=== PATIENT | female | born 1975 | race Caucasian/White ===

== ENCOUNTER → 2022-12-07 11:51 | Outpatient (CLI) | payer BC, SELFPAY ==
--- NOTE | ~2022-12-07 | XR_ITS ---
EXAMINATION: XR chest 2V 12/07/2022 12:55 INDICATION: Chronic cough PROCEDURE: 2 view chest COMPARISON: No prior studies for comparison. FINDINGS: The lungs are clear. The cardiomediastinal silhouette is within normal limits. There are no pleural effusions. There is no pneumothorax suspected. IMPRESSION: 1: NO ACUTE CARDIOPULMONARY DISEASE. Reviewed, dictated and finalized at location A.
== END ==
PROVIDERS: PCP Family Medicine; Visit Provider Family Medicine
DX: R05.3 Chronic cough (principal)
CPT/HCPCS: 71046

== ENCOUNTER 2023-08-24 07:21 | Outpatient (CLI) | payer BC, SELFPAY ==
--- NOTE | ~2023-08-24 | MM_ITS ---
EXAMINATION: MM screening lena BI w alvino HISTORY: Screening mammogram TECHNIQUE: Craniocaudal and mediolateral oblique 3-D tomosynthesis images were obtained and synthetic 2-D images were generated. CAD analysis was submitted and interpreted. COMPARISON: 11/18/2018 bilateral screening mammogram BREAST PARENCHYMAL COMPOSITION: There are scattered areas of fibroglandular density. FINDINGS: There is no evidence of suspicious mass, calcification, or architectural distortion to sugg est malignancy in either breast. There has been no suspicious interval change. IMPRESSION: 1. No mammographic evidence of malignancy. 2. Recommend routine screening mammography in one year. BI-RADS Category 1: Negative Reviewed, dictated and finalized at location A.
== END 2023-08-24 07:22 ==
LOC: MICIMG 07:22
PROVIDERS: PCP Physician Assistant; Visit Provider Physician Assistant
DX: Z12.31 Encounter for screening mammogram for malignant neoplasm of breast (principal)
CPT/HCPCS: 77063; 77067

== ENCOUNTER 2025-03-21 10:43 | Outpatient (CLI) | payer BC, SELFPAY ==
--- NOTE | ~2025-03-21 | US_ITS ---
EXAMINATION: US transvaginal INDICATION: Postmenopausal bleeding Comparison:No prior studies for comparison. TECHNIQUE: Multiple transabdominal and endovaginal sonographic images of the pelvis performed. FINDINGS: The uterus measures 8.2 x 5.7 x 6.7 cm. There is a complex partially calcified mass of the wrist measuring 3.9 x 3.4 x 3.7 cm, consistent with a fibroid. The endometrial complex is not well delineated due to fibroid changes. The ovaries are not visualized. There is no free fluid in the pelvis. There are no abnormal masses seen on either side. IMPRESSION: 1. Complex partially calcified uterine mass measuring 3.9 cm, consistent with fibroid. Reviewed, dictated and finalized at location O. [employer] IMPRESSION: 1. Complex partially calcified uterine mass measuring 3.9 cm, consistent with f ibroid.
== END 2025-03-21 10:44 | disposition home or self-care (01) ==
PROVIDERS: PCP Family Medicine; Visit Provider Nurse Practitioner Obstetrics & Gynecology
DX: N95.0 Postmenopausal bleeding (principal); R19.00 Intra-abdominal and pelvic swelling, mass and lump, unspecified site; D21.9 Benign neoplasm of connective and other soft tissue, unspecified; Z80.41 Family history of malignant neoplasm of ovary
CPT/HCPCS: 76830